=== PATIENT | male | born 1995 | race Two or more races ===

== ENCOUNTER → 2023-04-02 14:52 | Outpatient (BNVA) | payer SELFPAY | PROVIDERS: Visit Provider Physician Assistant ==

== ENCOUNTER 2023-06-04 08:07 | Emergency (ER) | payer SELFPAY ==
[2023-06-04 08:21] VITALS: BP 151/78; PULSE 105; RESP 20; TEMP 37.7; O2SAT 93; BMI 38.0
[2023-06-04 09:27] LABS: Influenza A PCR NEGATIVE (Negative); Influenza B PCR NEGATIVE (Negative); Resp Syncy Virus RNA Qual PCR NEGATIVE (Negative); SARS COV2 PCR INHOUSE NEGATIVE (Negative)
--- NOTE | 2023-06-04 11:24 | ECG_ITS ---
Test Reason : cp Blood Pressure : / mmHG Vent. Rate : 083 BPM Atrial Rate : 083 BPM P-R Int : 174 ms QRS Dur : 092 ms QT Int : 344 ms P-R-T Axes : 044 020 007 degrees QTc Int : 404 ms Normal sinus rhythm Normal ECG No previous ECGs available Referred By: Alva Sheffield Electronically Signed By:Yobani Gonzales
--- NOTE | 2023-06-04 11:24 | ED.GENADULT ---
HPI - General Adult General Chief complaint: Upper Respiratory Symptoms Stated complaint: Fever, blurry vision Time Seen by Provider: 06/04/23 11:24 Source: patient Mode of arrival: ambulatory Limitations: no limitations History of Present Illness HPI narrative: 27-year-old male presents with fatigue, malaise, myalgias, subjective fevers and chills ( significant other states 103-107F), headache, back pain X 2 days worsening. People at work are COVID positive. He denies chest pain, shortness of breath, nausea, vomiting, diarrhea, vision changes, dizziness, weakness at this time. He did report intermittent chest discomfort last night when lying down however that resolved. Related Data Allergies Allergy/AdvReac Type Severity Reaction Status Date / Time No Known Allergies Allergy Verified 06/04/23 08:24 Review of Systems Review of Systems: Yes all other systems are reviewed and are negative [facility] Past Medical History Attestation statement: The following information was validated with the patient. Source: old records reviewed and nursing notes reviewed Social History Social History Advance Directives: No Advance Directives Information Provided: No Physical Exam ED Vital Signs: Vital Signs - 24 hr 06/04/23 08:21 06/04/23 11:51 Temperature 99.8 F 98.3 F Pulse Rate 105 H Respiratory Rate 20 Blood Pressure 151/78 H Pulse Oximetry 93 Oxygen Delivery Method Room Air BMI result Body Mass Index 38.0 Tachycardia and low-grade fever likely secondary to viral illness Appearance: Alert.? Oriented X3.? No acute distress.? Head: Normocephalic, atraumatic, no step-offs or deformities Eyes: Pupils equal, round and reactive to light.? ENT: Pharynx normal.? Neck: Normal inspection.? Neck supple.? No meningeal signs negative Kernig and Brudzinski CVS: Normal heart rate and rhythm.? Pulses normal.? Respiratory: No respiratory distress.? Breath sounds normal.? Abdomen: Soft and nontender.? Skin: Skin warm and dry.? Normal skin color.? Normal skin turgor.? Extremities: No lower extremity edema.? No calf ttp. 5/5 strength to bilateral upper and lower extremities Back: No midline tenderness, no C-spine tenderness, full range of motion, no CVA tenderness bilaterally Neuro: Oriented X 3.? No motor deficit.? No sensory deficit. CN 2-12 intact Course Reevaluation(s) Reevaluation #1: CBC with slight leukocytosis likely secondary to viral illness. Chemistry unremarkable no acute findings requiring intervention, slight bump in transaminases likely secondary to viral illness. Troponin negative. EKG nonischemic. Flu, COVID, RSV negative. Plan patient to be discharged home ibuprofen every 6 hours Tylenol every 4 as needed for pain or discomfort. Or fever. Educated patient on diagnosis and treatment plan, answered all question, patient verbalizes understanding. At this time patient will be discharged home, advised to return with new or worsening symptoms. Educated on worrisome signs and symptoms and when to return. At this time I feel comfortable discharge home. Time: 11:53 Medical Decision Making Medical Decision Making [facility] Narrative: 27-year-old male presents with fatigue, malaise, subjective fevers and chills, headache, lower back pain ongoing for the past 2 days. Physical examination benign Likely viral illness. Unlikely meningitis, encephalitis, bronchitis, pneumonia, PE, ACS, intracranial hemorrhage, stroke, posterior stroke. Unlikely metabolic derangements. Unlikely ACS or PE. Plan basic labs, viral testing. Differential Diagnosis Differential Diagnoses: The differential diagnosis associated with the presentation includes Likely viral illness. Unlikely meningitis, encephalitis, bronchitis, pneumonia, PE, ACS, intracranial hemorrhage, stroke, posterior stroke. Unlikely metabolic derangements. Unlikely ACS or PE. Admission/Observation Consideration of admission/observation: Escalation of care including admission/observation considered Lab Data [facility] Lab Attestation statement: I reviewed the patient's lab results. 06/04/23 11:36 06/04/23 11:36 Labs: Lab Results 06/04/23 06/04/23 Range/Units 08:27 11:36 WBC 12.9 H (4.8-10.8) X10*3/uL RBC 5.50 (4.60-5.80) X10*6/uL Hgb 15.7 (14.0-18.0) g/dl Hct 45.3 (42.0-52.0) % MCV 82.4 (80.0-98.0) fL MCH 28.5 (27.0-33.0) pg MCHC 34.7 (31.0-36.0) g/dl RDW 13.2 (11.0-16.0) % Plt Count 190 (160-400) X10*3/uL MPV 12.2 (9.4-12.4) fL Immature Gran % (Auto) 0.3 (0.0-0.4) % Neut % (Auto) 76.9 H (45-73) % Lymph % (Auto) 13.4 L (20-40) % Churchill % (Auto) 8.4 (2-11) % Eos % (Auto) 0.8 (0-4) % Baso % (Auto) 0.2 (0-2) % Lymph # (Auto) 1.7 (1.2-4.9) X10*3/uL Churchill # (Auto) 1.1 (0.1-1.2) X10*3/uL Eos # (Auto) 0.1 (0.0-0.4) X10*3/uL Baso # (Auto) 0.0 (0.0-0.2) X10*3/uL Abs Immat Gran (auto) 0.04 H (0.00-0.03) X10*3/uL Absolute Neuts (auto) 10.0 H (2.0-8.3) x10*3/uL Absolute Nucleated RBC 0.000 (0.0-0.012) X10*3/uL Nucleated RBC % (auto) 0.0 (0.0-0.2) /100WBC Sodium 135 (135-145) mmol/L Potassium 4.3 (3.3-5.1) mmol/L Chloride 104 (96-108) mmol/L Carbon Dioxide 25 (22-29) mmol/L Anion Gap 10 L (12-20) BUN 9 (9-16) mg/dL Creatinine 0.90 (0.5-1.4) mg/dL Estim Creat Clear Calc 150.6 Estimated GFR > 60 Random Glucose 101 (60-115) mg/dL Calcium 9.5 (8.4-10.2) mg/dL Magnesium 2.0 (1.6-2.6) mg/dL Total Bilirubin 0.7 (0.0-1.0) mg/dL AST 51 H (5-37) U/L ALT 76 H (0-40) U/L Alkaline Phosphatase 91 (39-117) U/L Total Protein 7.6 (6.5-8.0) g/dL Albumin 4.1 (3.5-5.0) g/dL Influenza Type A (PCR) NEGATIVE (Negative) Influenza Type B (PCR) NEGATIVE (Negative) RSV RNA Qual (PCR) NEGATIVE (Negative) SARS-CoV-2 RNA (RT-PCR) NEGATIVE (Negative) Independent Interpretation I performed an independent interpretation of an: EKG (Vent. Rate : 083 BPM Atrial Rate : 083 BPM P-R Int : 174 ms QRS Dur : 092 ms QT Int : 344 ms P-R-T Axes : 044 020 007 degrees QTc Int : 404 ms Normal sinus rhythm Normal ECG No previous ECGs available) Tests considered The following testing was considered but not selected: NIH stroke scale 0. Atraumatic headache. Neurological assessment nonfocal cerebellar intact. No indication for imaging. Breath sounds clear no indication for x-ray of chest Prescription Management I considered prescription management with: Pain Medication (Ibuprofen and Tylenol) Chronic Conditions No known Discharge Plan Discharge Clinical Impression: Viral infection Patient Disposition: Home, Self-Care Instructions: Viral Syndrome (ED) Additional Instructions: Take your medications as prescribed. If you were prescribed antibiotics today, it is important that you take your medication to their entirety, do not skip any doses, do not finish them early. Follow-up with your primary care provider this week. Return to the emergency department with new or worsening symptoms. Such as fevers, chills, chest pain, shortness of breath, nausea, vomiting, dizziness, headache, vision changes, lethargy In case of emergency call 911 You can take ibuprofen every 6 hours Tylenol every 4 as needed for fever, pain or discomfort. Please do not exceed maximum daily dose as listed on packaging. Your labs were reassuring. Flu/COVID/RSV negative. Referrals: Physician,None [Primary Care Provider] - 2 days Stand Alone Forms: Work/School Release
[2023-06-04 11:41] LABS: MANUAL DIFF FLAG NO
[2023-06-04 11:42] LABS: Basophils Percent Auto 0.2 % (0-2); Eosinophils Absolute Auto 0.1 X10*3/uL (0.0-0.4); Eosinophils Percent Auto 0.8 % (0-4); Hematocrit 45.3 % (42.0-52.0); Hemoglobin 15.7 g/dl (14.0-18.0); Imm Gran Abs Auto 0.04 X10*3/uL (0.00-0.03); Imm Gran Pct Auto 0.3 % (0.0-0.4); Lymphocytes Absolute Auto 1.7 X10*3/uL (1.2-4.9); Lymphocytes Percent Auto 13.4 % (20-40); Mean Corpuscular HGB Conc 34.7 g/dl (31.0-36.0); Mean Corpuscular Hemoglobin 28.5 pg (27.0-33.0); Mean Corpuscular Volume 82.4 fL (80.0-98.0); Mean Platelet Volume 12.2 fL (9.4-12.4); Monocytes Absolute Auto 1.1 X10*3/uL (0.1-1.2); Monocytes Percent Auto 8.4 % (2-11); Neutrophils Percent Auto 76.9 % (45-73); Platelet Count 190 X10*3/uL (160-400); Red Cell Distribution Width 13.2 % (11.0-16.0); White Blood Count 12.9 X10*3/uL (4.8-10.8)
[2023-06-04 11:51] VITALS: TEMP 36.8
[2023-06-04 12:02] LABS: Alanine Aminotransferase 76 U/L (0-40); Albumin Level 4.1 g/dL (3.5-5.0); Alkaline Phosphatase 91 U/L (39-117); Anion Gap 10 (12-20); Aspartate Amino Transferase 51 U/L (5-37); Bilirubin Total 0.7 mg/dL (0.0-1.0); Blood Urea Nitrogen 9 mg/dL (9-16); Calcium 9.5 mg/dL (8.4-10.2); Carbon Dioxide 25 mmol/L (22-29); Chloride 104 mmol/L (96-108); Creatinine Clr Calc Pharmacy 150.6; Estimated Glomerular Filt Rate > 60; Glucose Random 101 mg/dL (60-115); Potassium 4.3 mmol/L (3.3-5.1); Sodium 135 mmol/L (135-145); Total Protein 7.6 g/dL (6.5-8.0)
[2023-06-04 12:11] LABS: Troponin-I High Sensitivity < 2.7 ng/L (<3.5-35.0)
== END 2023-06-04 12:15 | disposition home or self-care (01) ==
PROVIDERS: Physician Assistant; Emergency Provider Emergency Medicine
DX: B34.9 Viral infection, unspecified (principal); Z11.52 Encounter for screening for COVID-19; Z20.828 Contact with and (suspected) exposure to other viral communicable diseases
CPT/HCPCS: 0241U; 36415; 80053; 83735; 84484; 85025; 93005; 99283

== ENCOUNTER → 2023-06-04 11:24 | Outpatient (BNV) | payer SELFPAY | PROVIDERS: Emergency Provider Emergency Medicine; Visit Provider Internal Medicine Cardiovascular Disease | DX: R07.9 Chest pain, unspecified (principal) | CPT/HCPCS: 93010 ==